=== PATIENT | female | born 1975 | race Caucasian/White ===

== ENCOUNTER 2021-03-07 13:02 | Inpatient (IN) ==
[2021-03-07] MEDS ORDERED: Piperacillin/Tazobac ADVAN 3.375 GM in NS 0.9% 100 ml BAG 100 ML IV ONE ×2 (16:35→22:54)
[2021-03-07 17:43] LABS: ABS Eosinophils 0.1 10^3/ul (0-0.6); ABS Monocytes 0.7 10^3/ul (0-0.8); ABS Neutrophils 7.7 10^3/ul (1.5-7.7); Eosinophil % 1.2 %; Hematocrit 38 % (35-47); Lymphocyte % 18.6 %; Mean Corpuscular HGB Conc 35 g/dL (31-36); Mean Corpuscular Hemoglobin 29 pg (27-31); Mean Corpuscular Volume 85 fL (80-97); Mean Platelet Volume 8.6 fL (7.4-10.4); Nucleated Red Blood Cells % 0.1; Platelet Count 261 10^3/uL (150-450); Red Blood Count 4.43 10^6 /uL (3.70-4.87); Red Cell Distribution Width 13 % (10-15); White Blood Count 10.5 10^3/uL (3.5-10.8)
[2021-03-07 17:59] LABS: Albumin 4.1 g/dL (3.2-5.2); Albumin/Globulin Ratio 1.3 (1-3); C Reactive Protein 60.35 mg/L (<8.01); Calcium 9.4 mg/dL (8.6-10.3); EGFR African American 93.4 (>60); EGFR Non-African American 77.2 (>60); Globulin 3.2 g/dL (2-4); Total Bilirubin 0.4 mg/dL (0.2-1.0); Total Protein 7.3 g/dL (6.4-8.9)
[2021-03-07] MEDS ORDERED: NS 0.9% 1000 ml BAG 1,000 ML IV ONE (21:23)
[2021-03-07 21:24] LABS: Potassium 4.4 mmol/L (3.5-5.0)
[2021-03-07] MEDS ORDERED: Ondansetron 4 mg VIAL 2 MG/ML 2 ml VIAL IV PRN (22:54)
[2021-03-07] MEDS ORDERED: Albuterol HFA INHALER 8 gm MDI INH PRN (22:59)
[2021-03-07] MEDS ORDERED: Zosyn per Pharmacy NOTE FOLLOW UP SCH (23:00)
[2021-03-08] MEDS: NS 0.9% 1000 ml BAG 1,000 ML IV SCH ×2 (00:44→18:07)
[2021-03-08] MEDS ORDERED: Enoxaparin 40 MG/0.4 ML SYR SUBCUT SCH (02:00)
[2021-03-08] MEDS ORDERED: Vancomycin per Pharmacy 1 EA NOTE FOLLOW UP PRN (02:09)
[2021-03-08] MEDS ORDERED: ZOSYN 3.375 GM Q8H per EXTENDED INFUSION IV SCH (03:00)
[2021-03-08] MEDS ORDERED: Vancomycin 1500 MG IV - x ONCE IVPB ONE (03:30)
[2021-03-08] MEDS: Cefepime 1 GM in Dextrose 1 GM/50 ML BAG IV SCH ×2 (04:49→18:06)
[2021-03-08] MEDS: metroNIDAZOLE IV 500 MG/100ML 100 ML IVPB SCH ×3 (05:34→21:47)
[2021-03-08 06:34] LABS: ABS Eosinophils 0.2 10^3/ul (0-0.6); ABS Lymphocytes 2.2 10^3/ul (1.0-4.8); ABS Monocytes 0.7 10^3/ul (0-0.8); ABS Neutrophils 5.2 10^3/ul (1.5-7.7); Hematocrit 34 % (35-47); Hemoglobin 11.7 g/dL (12.0-16.0); Lymphocyte % 26.3 %; Mean Corpuscular HGB Conc 35 g/dL (31-36); Mean Corpuscular Hemoglobin 29 pg (27-31); Mean Corpuscular Volume 84 fL (80-97); Mean Platelet Volume 8.5 fL (7.4-10.4); Nucleated Red Blood Cells % 0.1; Platelet Count 221 10^3/uL (150-450); Red Blood Count 4.01 10^6 /uL (3.70-4.87); Red Cell Distribution Width 13 % (10-15); White Blood Count 8.2 10^3/uL (3.5-10.8)
[2021-03-08 06:40] LABS: INR 1.05 (0.86-1.15)
[2021-03-08 07:04] LABS: Calcium 8.3 mg/dL (8.6-10.3); EGFR African American 110.8 (>60); EGFR Non-African American 91.6 (>60); Potassium 3.7 mmol/L (3.5-5.0)
[2021-03-08 08:51] LABS: C Reactive Protein 31.84 mg/L (<8.01)
[2021-03-08] MEDS ORDERED: Morphine 2 MG/ML SYRINGE IV PRN (08:54)
[2021-03-08] MEDS ORDERED: CMCS: Vortioxetine 10 mg TAB (NF) PO SCH (09:00)
[2021-03-08] MEDS ORDERED: PREGABALIN 225 MG PO SCH (09:00)
[2021-03-08] MEDS ORDERED: Lidocaine 1% VIAL 10 MG/ML VIAL ONE (14:39)
[2021-03-08] MEDS ORDERED: Midazolam 2 mg/2 ml VIAL 1 mg/ml 2 ml VIAL (2 mg) ONE (15:01)
[2021-03-08] MEDS ORDERED: fentaNYL 100 mcg/2 ml 50 MCG/ML VIAL ONE ×3 (15:01→17:06)
[2021-03-08] MEDS ORDERED: Ondansetron 4 mg VIAL 2 MG/ML 2 ml VIAL ONE (15:37)
[2021-03-08] MEDS ORDERED: Dexamethasone IV 4 MG/ML VIAL 1 ml VIAL ONE (15:37)
[2021-03-08] MEDS ORDERED: HYDROmorphone 1 MG/1 ML SYRINGE ONE ×2 (15:37→16:09)
[2021-03-08] MEDS ORDERED: Propofol 10 MG/ML 20 ML BTL ONE (16:07)
[2021-03-08] MEDS ORDERED: fentaNYL 100 mcg/2 ml 50 MCG/ML VIAL IV PRN (17:03)
[2021-03-08] MEDS: Vancomycin 1,250 MG in NS 0.9% 250 ml 250 ML IVPB SCH (20:05)
[2021-03-08] MEDS: CMCS: Vortioxetine 10 mg TAB (NF) PO SCH (21:47)
[2021-03-09] MEDS: Cefepime 1 GM in Dextrose 1 GM/50 ML BAG IV SCH ×2 (03:16→15:09)
[2021-03-09] MEDS: Vancomycin 1,250 MG in NS 0.9% 250 ml 250 ML IVPB SCH ×2 (03:58→16:20)
[2021-03-09 05:18] LABS: ABS Lymphocytes 1.2 10^3/ul (1.0-4.8); ABS Monocytes 0.5 10^3/ul (0-0.8); ABS Neutrophils 8.3 10^3/ul (1.5-7.7); Eosinophil % 0.2 %; Hematocrit 35 % (35-47); Hemoglobin 11.9 g/dL (12.0-16.0); Lymphocyte % 11.8 %; Mean Corpuscular HGB Conc 34 g/dL (31-36); Mean Corpuscular Hemoglobin 29 pg (27-31); Mean Corpuscular Volume 84 fL (80-97); Mean Platelet Volume 8.2 fL (7.4-10.4); Platelet Count 249 10^3/uL (150-450); Red Blood Count 4.14 10^6 /uL (3.70-4.87); Red Cell Distribution Width 13 % (10-15)
[2021-03-09 05:42] LABS: C Reactive Protein 15.75 mg/L (<8.01); Calcium 8.7 mg/dL (8.6-10.3); EGFR African American 130.2 (>60); EGFR Non-African American 107.6 (>60); Potassium 3.8 mmol/L (3.5-5.0)
[2021-03-09] MEDS: metroNIDAZOLE IV 500 MG/100ML 100 ML IVPB SCH ×3 (05:53→23:19)
[2021-03-09] MEDS: Enoxaparin 40 MG/0.4 ML SYR SUBCUT SCH (12:15)
[2021-03-09] MEDS: Amphetamine MIXED SALT 10mgTAB PO SCH (13:20)
[2021-03-09] MEDS ORDERED: Vancomycin Trough Check NOTE FOLLOW UP ONE (15:30)
[2021-03-09] MEDS: Vancomycin 1,500 MG in NS 0.9% 250 ml 250 ML IVPB SCH (16:37)
[2021-03-09] MEDS: CMCS: Vortioxetine 10 mg TAB (NF) PO SCH (20:51)
[2021-03-10] MEDS: Cefepime 1 GM in Dextrose 1 GM/50 ML BAG IV SCH (03:17)
[2021-03-10] MEDS: Vancomycin 1,500 MG in NS 0.9% 250 ml 250 ML IVPB SCH ×2 (04:52→15:30)
[2021-03-10 06:19] LABS: ABS Basophils 0.1 10^3/ul (0-0.2); ABS Eosinophils 0.2 10^3/ul (0-0.6); ABS Lymphocytes 2.4 10^3/ul (1.0-4.8); ABS Monocytes 0.6 10^3/ul (0-0.8); ABS Neutrophils 3.9 10^3/ul (1.5-7.7); Eosinophil % 2.5 %; Hematocrit 31 % (35-47); Lymphocyte % 33.8 %; Mean Corpuscular HGB Conc 35 g/dL (31-36); Mean Corpuscular Hemoglobin 29 pg (27-31); Mean Corpuscular Volume 83 fL (80-97); Mean Platelet Volume 7.9 fL (7.4-10.4); Platelet Count 221 10^3/uL (150-450); Red Blood Count 3.75 10^6 /uL (3.70-4.87); Red Cell Distribution Width 13 % (10-15); White Blood Count 7.1 10^3/uL (3.5-10.8)
[2021-03-10 06:37] LABS: C Reactive Protein 8.1 mg/L (<8.01); Calcium 8.2 mg/dL (8.6-10.3); EGFR African American 97.7 (>60); EGFR Non-African American 80.7 (>60); Potassium 3.6 mmol/L (3.5-5.0)
[2021-03-10] MEDS: metroNIDAZOLE IV 500 MG/100ML 100 ML IVPB SCH ×3 (07:20→21:18)
[2021-03-10] MEDS: Enoxaparin 40 MG/0.4 ML SYR SUBCUT SCH (12:29)
[2021-03-10] MEDS: Amphetamine MIXED SALT 10mgTAB PO SCH (12:29)
[2021-03-10] MEDS ORDERED: Magnesium Hydroxide LIQ 30 ML UDC PO PRN (14:07)
[2021-03-10] MEDS ORDERED: Senna TAB 8.6 mg TAB PO PRN (14:07)
[2021-03-10] MEDS ORDERED: Polyethylene Glycol 3350 17 GM PACKET PO PRN (14:07)
[2021-03-10] MEDS ORDERED: cefTRIAXone 1 gm/50 mL NS BAG 1 GM/50 ML BAG IVPB SCH (17:00)
[2021-03-10] MEDS: CMCS: Vortioxetine 10 mg TAB (NF) PO SCH (21:17)
[2021-03-10] MEDS: Magnesium Hydroxide LIQ 30 ML UDC PO SCH (21:19)
[2021-03-11] MEDS: Vancomycin 1,500 MG in NS 0.9% 250 ml 250 ML IVPB SCH (04:29)
[2021-03-11 06:09] LABS: ABS Eosinophils 0.2 10^3/ul (0-0.6); ABS Monocytes 0.6 10^3/ul (0-0.8); ABS Neutrophils 4.7 10^3/ul (1.5-7.7); Eosinophil % 3.1 %; Hematocrit 33 % (35-47); Hemoglobin 11.6 g/dL (12.0-16.0); Lymphocyte % 26.2 %; Mean Corpuscular HGB Conc 35 g/dL (31-36); Mean Corpuscular Hemoglobin 29 pg (27-31); Mean Corpuscular Volume 83 fL (80-97); Mean Platelet Volume 7.7 fL (7.4-10.4); Nucleated Red Blood Cells % 0.1; Platelet Count 252 10^3/uL (150-450); Red Blood Count 3.98 10^6 /uL (3.70-4.87); Red Cell Distribution Width 13 % (10-15); White Blood Count 7.6 10^3/uL (3.5-10.8)
[2021-03-11 06:24] LABS: C Reactive Protein 8.22 mg/L (<8.01); Calcium 8.6 mg/dL (8.6-10.3); EGFR African American 110.8 (>60); EGFR Non-African American 91.6 (>60); Potassium 3.9 mmol/L (3.5-5.0)
[2021-03-11] MEDS: metroNIDAZOLE IV 500 MG/100ML 100 ML IVPB SCH ×2 (08:04→14:59)
[2021-03-11] MEDS: Magnesium Hydroxide LIQ 30 ML UDC PO SCH (08:05)
[2021-03-11] MEDS: Enoxaparin 40 MG/0.4 ML SYR SUBCUT SCH (12:57)
[2021-03-11] MEDS: Amphetamine MIXED SALT 10mgTAB PO SCH (12:57)
[2021-03-11] MEDS ORDERED: Vancomycin Trough Check NOTE FOLLOW UP ONE (15:30)
[2021-03-11 16:00] VITALS: BP 150/75
== END 2021-03-11 17:55 | disposition home or self-care (01) | DRG 316 ==
LOC: SSU 13:02 → ED 13:02 → SSU 03-08 00:34
PROVIDERS: ADMIT Internal Medicine; ATTEND Internal Medicine